=== PATIENT | male | born 1995 | race Caucasian/White ===

== ENCOUNTER 2024-11-01 14:00 | Outpatient (RCR) | payer OTHER, SELFPAY ==
--- NOTE | 2024-10-04 09:27 | HP.PTEVAL_ITS ---
Patient's Visit Information Visit Information Visit Information: MYKEL RODRIGUEZ is a 29 year old M referred to Physical Therapy by Dr. Magdiel Holt MD with a diagnosis of R shoulder pain, instability. Date of Evaluation: 10/04/24 Physical Therapist: Juan Fiore DPT Visit Plan Frequency: 2x /Week Duration: 6 Weeks Plan: 1) modified gym exercises to allow for completion without increase in symptoms. 2) add in shoulder stability exercises as tolerated. Subjective Subjective: Pt. is here today for his initial evaluation with diagnosis of R shoulder pain and instability. Pt. reports having a R labral repair ~10 years ago. He had been doing well, until recently he has been having some increased lateral and posterior shoulder pain with some of his lifting routine. Pt. reports having having constant pain, but is frequently. He has had to alter his lifting program secondary to pain. He reports benching has been painful, along with OH press and with lat pull down like movements. He denies N/T in either UE. Pt. is sleeping well. He is having some pain at work as well. He is frequently looking into microscope. Pt. is hopeful to get back to all recreational lifting without limitations. Pain R shoulder: Pain Intensity (Out of 10): 0 Pain Intensity Range: 0 and 4 Objective Objective: POSTURE: Pt. has good posture in stance. Pt. has normal shoulder positioning bilaterally. PALPATION: Pt. has some tenderness at posterior subacromial space. NEURO: Normal throughout BUEs. ROM: Pt. has full ROM without increase in symptoms. Pt. has some mild soreness with end range cross body stretching. No pain with ER/IR at end range. MMT: PT. has 5/5 throughout B shoulders. Pt. did have some sligth pain with shoulder extension starting from fully flexed. Pt. also had slight pain with rhomboid testing as well. Balance/Special Test Scores Quick DASH Score: 25.0000 Goals Goal 1:: LTG: Pt. to be I with HEP. Goal Time Frame: 4-6 Weeks Goal 2:: LTG: Pt. to resume all lifting without increase in R shoulder pain. Goal Time Frame: 4-6 Weeks Goal 3:: LTG: Pt. to have full strength throughout BUEs without increase in symptoms. Goal Time Frame: 4-6 Weeks Goal 4:: LTG: Pt. to complete to have full ROM without increase symptoms. Goal Time Frame: 4-6 Weeks Rehabilitation Potential Physical Therapy Diagnosis: Pt. has signs and symptoms consistent with R shoulder pain and instability. He reports posterior inferior shoulder pain with lifting. He did not have marked weakness this date, but did have some pain with extension testing. Pt. would benefit from PT to address his shoulder issues progressing back to all recreational lifting without limitations. Rehabilitation Potential: Excellent Anticipated Interventions Patient/Client Instruction: Educate patient on: Condition, Plan of Care, Risk Factors and Benefits of Fitness Program For the Purpose of:: To foster healthy habits, To improve decision making, To facilitate caregiver knowledge, To improve self management, To prevent re- injury, To improve ability to perform tasks related to life management and To improve tolerance to ADL's Therapeutic Exercise to Include: Strength training, Power training, Body mechanics, Postural training, Passive ROM, Active ROM and Scapular Strength/Stabilization For the Purpose of:: To decrease pain, To increase ROM, To improve nutrient delivery to tissue, To increase oxygenation perfusion, To improve muscle performance and motor function, To improve ability to perform ADL's, To increase tolerance to activity/condition/position and To improve performance and independence with ADL's Text: Thank you for the opportunity to evaluate your patient. For Medicare and Medicare HMO plans, please review the plan of care and approve it. It will need to be FAXED BACK to us at [phone] for Medicare purposes. For Medicare only, by signing this I certify the plan of care. Please let me know if there are questions or concerns regarding this plan of care. Physician Signature: Date:
== END 2024-11-01 19:00 | disposition home or self-care (01) ==
LOC: PT 14:00
PROVIDERS: Referring Provider Orthopaedic Surgery Sports Medicine; Visit Provider Orthopaedic Surgery Sports Medicine
DX: M25.511 Pain in right shoulder (principal); M25.311 Other instability, right shoulder
CPT/HCPCS: 97110; 97161

== ENCOUNTER → 2024-11-02 | Outpatient (CLI) | payer OTHER, SELFPAY ==
--- NOTE | 2024-11-02 09:50 | RAD_ITS ---
PROCEDURE: Fluoroscopic guided right shoulder arthrogram. DATE: November 02, 2024. INDICATION: Male, 29 years old. Right labral tear. PHYSICIAN: Vinicio Pineda M.D. NEEDLE: 22-gauge spinal needle. FLUOROSCOPY TIME (if supplied): (0:37) minutes/seconds. 4 images were submitted. FINDINGS: The risks, benefits, and alternatives to the procedure were explained to the patient. The specific risks of bleeding, infection, and neurovascular injury were detailed and accepted. Witnessed informed consent was obtained. A 22-gauge spinal needle was positioned under radiographic fluoroscopic localization. Approximately 2 cc of [id number] instilled for localization purposes. Following this, 10 cc of dilute MRI contrast was injected. The patient tolerated the procedure well without any immediate complications. RAD/Arthrogram Shoulder w/ MRI IMPRESSION: 1. Successful fluoroscopic guided right shoulder arthrogram. MRI will follow. Electronically Signed: Vinicio Pineda MD at 11:58 EST ,
[2024-11-02] MEDS: Lidocaine 2% (5ml sdv) 5 ML VIAL.MPF INFILT (10:07)
[2024-11-02] MEDS: Iopamidol 10 ML in Syringe 1 EACH 600 ML INTRAARTIC (10:09)
[2024-11-02] MEDS: Gadoterate Meglumine Diluted 10 ML, Iopamidol 5 ML, Lidocaine 1% (20 ml mdv) 5 ML, Epin... INTRAARTIC (10:10)
--- NOTE | 2024-11-02 10:29 | MRI_ITS ---
STUDY: MRI ARTHROGRAM OF THE RIGHT SHOULDER REASON FOR EXAM: Male, 29 years old. PAIN X 6 MONTHS, good ROM and molder operator strength, no specific new injury, ache, dull, sometimes sharp, front and back of shoulder, intra-articular injection of a MR arthrogram solution containing [address] Pineda. TECHNIQUE: 10 cc dilute Clariscan contrast was injected into the right glenohumeral joint. MRI was obtained in all 3 orthogonal planes. In addition, a fat-suppressed T1-weighted sequence was performed with the patient''s arm in the abduction external rotation (ABER) position. COMPARISON: Right shoulder radiographs dated 09/13/2024. FINDINGS: Normal supraspinatus tendon. Normal infraspinatus tendon. Normal subscapularis tendon. Normal teres minor tendon. Normal supraspinatus muscle. Normal infraspinatus muscle. Normal subscapularis muscle. Normal teres minor muscle. There is a tear of the posterior glenoid labrum (axial T1 series 3 images 11-15), with an adjacent 8 mm paralabral cyst (sagittal T2 series 7 image 14). Normal glenohumeral articulation. Normal humeral head and visualized proximal humerus. Normal biceps labral complex. Normal intracapsular long biceps tendon. Normal rotator interval. Normal acromioclavicular articulation. There is a Type II morphology (curved), with a neutral orientation. There is no subacromial-subdeltoid bursal fluid. Normal visualized coracohumeral and coracoacromial ligaments. Normal quadrilateral space. Normal axillary space. Normal deltoid muscle. Normal trapezius muscle. MRI/Upper Ext Jt Only W/Contrast IMPRESSION: Tear of the posterior glenoid labrum, with an adjacent 8 mm paralabral cyst. No rotator cuff tear. Electronically Signed: Jaren Garcia MD at 12:40 EST ,
== END | disposition home or self-care (01) ==
PROVIDERS: Referring Provider Orthopaedic Surgery Sports Medicine; Visit Provider Orthopaedic Surgery Sports Medicine
DX: M25.311 Other instability, right shoulder (principal); M25.511 Pain in right shoulder
CPT/HCPCS: 23350; 73222; 77002; Q9967